=== PATIENT | male | born 1995 | race Caucasian/White ===

== ENCOUNTER 2020-11-06 12:34 | Emergency (ER) | payer OTHER ==
[~2020-11-06] VITALS: Ht 188 cm; Wt 170.6 kg
[2020-11-06 12:41] VITALS: BP 159/98
== END 2020-11-06 14:44 | disposition home or self-care (01) ==
LOC: ED 12:34
DX: S09.8XXA Other specified injuries of head, initial encounter (principal); R03.0 Elevated blood-pressure reading, without diagnosis of hypertension; W22.8XXA Striking against or struck by other objects, initial encounter; Y93.89 Activity, other specified; Y92.89 Other specified places as the place of occurrence of the external cause; Y99.8 Other external cause status